=== PATIENT | male | born 1940 | race Caucasian/White ===

== ENCOUNTER → 2016-07-31 | Outpatient (CLI) | payer MEDICARE, BC ==
--- NOTE | 2016-07-31 09:10 | KCIC ---
PROCEDURE CT lumbar spine without contrast. HISTORY Chronic low back pain, right hip pain, previous compression fracture and vertebroplasty COMPARISON September 02, 2012 lumbar spine radiographs also July 01, 2012 MRI lumbar spine exam FINDINGS There has been vertebroplasty at L4 and L1, also bilateral sacroplasty. Vertebral body stature at the other levels is similar. There is bone demineralization. AP alignment is adequate. Intervertebral disc spaces are adequate other than narrowing of the T12-L1 intervertebral disc space at which there is interbody calcification. There is multilevel lumbar facet hypertrophic change greatest L3-4 to L5-S1. No significant lumbar spinal stenosis is identified, probable mild lateral recess stenosis greater on the right at L3-4. No significant lumbar neural foramina compromise is identified. There is mild bony deformity at the S1-2 level. There is vascular calcification of the renal hilar regions bilaterally. There is 3.4 cm exophytic focus of density of the inferior left kidney, density measurements suggestive of a cyst. Not fully included, there is infrarenal abdominal aortic aneurysm up to approximately 4.1 cm in the axial plane. There is atherosclerotic calcification of the visualized abdominal aorta as well as iliac arteries bilaterally. There is likely mild sigmoid diverticulosis. IMPRESSION 1. Not fully included, there is infrarenal abdominal aortic aneurysm up to 4.1 cm in the axial plane. 2. There has been vertebroplasty at L4 and L1, also bilateral sacroplasty. There is bone demineralization. There is mild bony deformity at the S1-2 level although may be old. However if there is concern for more recent sacral insufficiency fracture, MRI to evaluate for marrow edema could be beneficial. Electronically signed by: Morris Landrum MD (Jul 31, 2016 09:09:26)
== END | disposition home or self-care (01) ==
LOC: KCIC CT 08:30
PROVIDERS: ATTEND Nurse Practitioner Family
DX: M54.5 Low back pain (principal); G89.29 Other chronic pain
CPT/HCPCS: 72131